=== PATIENT | male | born 1960 | race Caucasian/White ===

== ENCOUNTER 2017-07-06 00:56 | Emergency (ER) | payer OTHER ==
[~2017-07-06] VITALS: Ht 162.6 cm; Wt 89.8 kg
[~2017-07-06 00:56] MED LIST: ALLO300T PO; ATEN50TA PO; ATOR10TA PO; FENO145T2 PO; PIOG15TA42 PO; RAMI5CAP PO
[2017-07-06 00:57] VITALS: BP 172/92
--- NOTE | 2017-07-06 01:30 | PHYS DOC ---
Past Medical History Past Medical History: Diabetes-Type II, Other Additional Past Medical Histor: cerebral palsy Past Surgical History: Angioplasty, Coronary Bypass Surgery Additional Past Surgical Histo: ankle and leg surgery Alcohol Use: Occasionally Drug Use: None Adult General Chief Complaint Chief Complaint: HIP PAIN HPI HPI Patient is a 57 year old male who presents with chief complaint of sciatica- like pain on the right side, the pain is described as being similar to previous episodes. Patient has no other complaints. Patient denies abdominal pain chest pain, neck pain, shortness of breath. Review of Systems Review of Systems Constitutional: Denies fever or chills [] HENT: Denies neck pain Respiratory: Denies cough or shortness of breath [] Cardiovascular: No chest pain GI: Denies abdominal pain, nausea, vomiting, : Denies dysuria or hematuria [] Musculoskeletal: Denies joint pain. Pain at right lower back and a deviated the sciatic notch and the back of his right leg. No new swelling Integument: Denies rash or skin lesions [] Neurologic: Denies headache, focal weakness or sensory changes [] Endocrine: Denies polyuria or polydipsia [] Allergies Allergies Allergies Coded Allergies Type Severity Reaction Last Updated Verified No Known Drug Allergies 02/23/14 No Physical Exam Physical Exam Constitutional: Well developed, well nourished, no acute distress, non-toxic appearance. [] HENT: Normocephalic, atraumatic, oropharynx moist, no oral exudates, nose normal. [] Eyes: EOMI, conjunctiva normal, no discharge. [] Neck: Normal range of motion, no tenderness, supple, no stridor. [] Cardiovascular:Heart rate regular rhythm, no murmur, equal pulses, normal perfusion Lungs & Thorax: Bilateral breath sounds clear to auscultation, no tachypnea Abdomen: Bowel sounds normal, soft, no tenderness, no masses, no pulsatile masses. [] Skin: Warm, dry, no erythema, no rash. [] Back: Tenderness at the right lower back, at the sciatic notch on the right and the back of the right leg. Extremities: No tenderness, no cyanosis, no DVT, ROM intact, no edema. [] Neurologic: Alert and oriented X 3, normal motor function,, no focal deficits noted. [] Psychologic: Affect normal, judgement normal, mood normal. [] Current Patient Data Vital Signs Vital Signs Date Time Temp Pulse Resp B/P (MAP) Pulse Ox O2 Delivery O2 Flow Rate FiO2 07/06/17 00:57 98.2 79 20 172/92 (118) 97 Room Air 98.2 EKG EKG [] Radiology/Procedures Radiology/Procedures [] Course & Med Decision Making Course & Med Decision Making Pertinent Labs and Imaging studies reviewed. (See chart for details) [] Dragon Disclaimer Dragon Disclaimer This electronic medical record was generated, in whole or in part, using a voice recognition dictation system. Departure Departure Impression: Primary Impression: Sciatica of right side Disposition: HOME, SELF-CARE Condition: STABLE Referrals: PANDA MIN MD (PCP) Please follow-up with your doctor for recheck and reevaluation in 2-4 days Patient Instructions: Sciatica Scripts Methyl Salicylate/Menthol (ICY HOT CREAM) 35.4 Gm Cream..g. 35.4 GM TP BID Y for PAIN for 5 Days, #1 EACH Prov: Natalie VALENCIA MD 07/06/17 Acetaminophen With Codeine (ACETAMINOPHEN-COD #3 TABLET) 1 Each Tablet 1 TAB PO PRN Q6HRS Y for PAIN for 2 Days, #8 TAB Prov: Natalie VALENCIA MD 07/06/17 Natalie VALENCIA MD Jul 06, 2017 01:30
[2017-07-06] MEDS ORDERED: METH35.4 TP (01:35)
[2017-07-06] MEDS ORDERED: ACET1TAB33 PO (01:35)
[2017-07-06] MEDS: HYDROcodone/APAP 5/325MG 1 TAB TABLET PO ONE (01:43)
[2017-07-06] MEDS: KETOROLAC 30 MG/ML INJ. IM ONE (01:45)
== END 2017-07-06 02:11 | disposition home or self-care (01) ==
LOC: ER 00:56
DX: M54.41 Lumbago with sciatica, right side (principal); E11.9 Type 2 diabetes mellitus without complications; G80.9 Cerebral palsy, unspecified; Z95.5 Presence of coronary angioplasty implant and graft; Z95.1 Presence of aortocoronary bypass graft
CPT/HCPCS: 96372; 99284; J1885

== ENCOUNTER → 2019-01-16 | Outpatient (CLI) | payer OTHER ==
[~2019-01-16] MED LIST changes: +ACET1TAB33 PO; +BUPIVACAINE MPF 0.5% 10 ML VIAL for KCIC. IM ONE; -FENO145T2 PO; +FENO145T30 PO; +IOHEXOL 300 MG/ML 50 ML VIAL. INT ART ONE; +LIDOCAINE 1% Multi-Dose 20 ML VIAL. ID ONE; +METH35.4 TP; -RAMI5CAP PO; +RAMI5CAP50 PO; +methylPREDNISolone ACETATE 40 MG/ML VIAL. INT ART ONE
--- NOTE | 2019-01-16 15:43 | KCIC ---
Clinical indications: Left knee joint pain. Osteoarthritis. Previous surgery. Cerebral palsy. Procedure: The procedure and possible complications including bleeding and infection were explained. The patient provided both verbal and written consent. A timeout was performed confirming the name of the patient and date of and the procedure and side of the procedure. The anterior medial aspect of the left knee in the region of the medial patellofemoral joint recess was prepped and draped in the usual sterile fashion with ChloraPrep. A total of 3 cc of 1% lidocaine was utilized for local anesthesia. Using sterile technique and fluoroscopic guidance, a 22-gauge spinal needle was directed into the medial aspect of the patellofemoral joint compartment from an anterior medial approach. A solution containing 4 cc of Omnipaque 300 and 4 cc of 0.25% bupivacaine and 4 cc of 1% lidocaine and 2 cc (80 mg) of Depo-Medrol was injected intra-articularly. Single fluoroscopic spot image was performed. The needle was removed and hemostasis was adequate. A sterile bandage was applied to the puncture site. The patient tolerated the procedure well without complication. Follow-up will be with the patient's physician. Total fluoroscopic time: 16 seconds. 1 fluoroscopic spot image was performed. Impression: Fluoroscopic guided therapeutic left knee injection was performed. Electronically signed by: Jax Sy MD (01/16/2019 3:40 PM) [facility]
== END | disposition home or self-care (01) ==
LOC: KCIC 12:26
PROVIDERS: ATTEND Family Medicine
DX: M17.12 Unilateral primary osteoarthritis, left knee (principal); E11.9 Type 2 diabetes mellitus without complications; I25.2 Old myocardial infarction; Z95.5 Presence of coronary angioplasty implant and graft; Z79.84 Long term (current) use of oral hypoglycemic drugs; Z79.899 Other long term (current) drug therapy
CPT/HCPCS: 20610; 77002; J1030; Q9967

== ENCOUNTER 2019-10-29 14:33 | Inpatient (IN) | payer OTHER ==
[~2019-10-29] VITALS: Ht 162.6 cm; Wt 87.5 kg
[~2019-10-29 14:33] MED LIST changes: -BUPIVACAINE MPF 0.5% 10 ML VIAL for KCIC. IM ONE; +FENO145T3 PO; -FENO145T30 PO; -IOHEXOL 300 MG/ML 50 ML VIAL. INT ART ONE; -LIDOCAINE 1% Multi-Dose 20 ML VIAL. ID ONE; -methylPREDNISolone ACETATE 40 MG/ML VIAL. INT ART ONE
[2019-10-29 16:09] VITALS: BP 151/85
[2019-10-29] MEDS ORDERED: FENO145T3 PO (17:46)
[2019-10-29] MEDS ORDERED: ATOR20TA58 PO (17:46)
[2019-10-29] MEDS ORDERED: PANT40TA77 PO (17:46)
[2019-10-29] MEDS ORDERED: ALLO300T PO (17:46)
[2019-10-29] MEDS ORDERED: CEPH500C PO (17:46)
[2019-10-29] MEDS ORDERED: PIOG30TA41 PO (17:46)
[2019-10-29] MEDS ORDERED: ATEN50TA PO (17:46)
[2019-10-29] MEDS ORDERED: RAMI10CA53 PO (17:46)
[2019-10-29] MEDS ORDERED: DOXY100C2 PO (17:46)
[2019-10-29] MEDS ORDERED: FURO40TA4 PO (17:46)
--- NOTE | 2019-10-29 17:49 | NUR ---
pt admitted to room 576. oriented to room and call light. wounds pictured. pg to Dr. Lucero for orders.
[2019-10-29] MEDS ORDERED: VANCOMYCIN PER PHARMACY MC PRN (18:00)
[2019-10-29] MEDS ORDERED: INSU100V6 SQ (18:11)
[2019-10-29] MEDS ORDERED: IV DEXTROSE 5% 250 ML BAG. IV PRN (18:15)
[2019-10-29] MEDS ORDERED: DEXTROSE 50% 25 GM / 50ML DISP.SYRIN. IV PRN (18:15)
[2019-10-29] MEDS ORDERED: VANCOMYCIN 2 GM in IV NORMAL SALINE 500ML BAG 500 ML IV ONE (18:15)
[2019-10-29] MEDS ORDERED: PIPERACILLIN/TAZOBACTAM 3.375 GM in IV NORMAL SALINE 50ML 50 ML IV ONE (18:15)
[2019-10-29] MEDS: ALLOPURINOL 300 MG TABLET. PO SCH (18:30)
[2019-10-29 18:33] LABS: BASO # 0.1 x10^3/uL (0.0-0.2); BASO % 1 % (0-3); EOS # 0.1 x10^3/uL (0.0-0.7); EOS % 2 % (0-3); HEMATOCRIT 45.2 % (39.0-53.0); HEMOGLOBIN 14.9 g/dL (13.0-17.5); LYMPH # 1.5 x10^3/uL (1.0-4.8); LYMPH % 23 % (24-48); MEAN CORPUSCULAR HEMOGLOBIN 29 pg (25-35); MEAN CORPUSCULAR HGB CONC 33 g/dL (31-37); MEAN CORPUSCULAR VOLUME 87 fL (79-100); MONO # 0.4 x10^3/uL (0.0-1.1); MONO % 6 % (0-9); NEUT # 4.3 x10^3/uL (1.8-7.7); NEUT % 68 % (31-73); PLATELET COUNT 190 x10^3/uL (140-400); WHITE BLOOD COUNT 6.3 x10^3/uL (4.0-11.0)
[2019-10-29 18:40] LABS: INFLUENZA A PATIENT NEGATIVE (NEGATIVE); INFLUENZA B PATIENT NEGATIVE (NEGATIVE)
[2019-10-29 18:42] LABS: CALCIUM 9.6 mg/dL (8.5-10.1); CREATININE 0.8 mg/dL (0.7-1.3); GFR 98.3; POTASSIUM 3.9 mmol/L (3.5-5.1)
[2019-10-29 18:48] LABS: ALBUMIN 3.5 g/dL (3.4-5.0); TOTAL BILIRUBIN 0.4 mg/dL (0.2-1.0)
[2019-10-29] MEDS: ATENOLOL 50 MG TABLET. PO SCH (18:48)
[2019-10-29] MEDS: PANTOPRAZOLE 40 MG TABLET.DR. PO SCH (18:48)
[2019-10-29] MEDS: LISINOPRIL 20 MG TABLET PO SCH (18:49)
[2019-10-29] MEDS: FENOFIBRATE,MICRONIZED 134 MG CAPSULE PO SCH (18:50)
[2019-10-29] MEDS: PIOGLITAZONE 15 MG TABLET. PO SCH (18:50)
[2019-10-29] MEDS: INSULIN LISPRO 300 UNITS/3 ML VIAL. SQ SCH (18:52)
[2019-10-29 19:00] VITALS: BP 127/70
--- NOTE | 2019-10-29 19:13 | NUR ---
Pharmacy Vancomycin Dosing Note S:Consulted to monitor and dose vancomycin started 10/29/19. O:THOM LARSON is a 59 year old M with Cellulitis Height: 5 feet, 4 inches Weight: 93 kg Redfox Body Weight: 59.20 Adjusted Body Weight: 72.72 Dosing Weight: Actual Other Antibiotics: ZOSYN LABS: Last BUN: 23 Last Creatinine: 0.8 Creatinine Clearance: 100 mL/min Last WBC: 6.3 Last Procalcitonin: Tmax (past 24 hours): 98.1 Microbiology: - Vancomycin Dosing: Loading Dose: 2000 mg x1 Dosing Weight: Actual Target Trough: 10-20 A: Based on: weight and renal function P: 1. Begin Vancomycin 1250 mg IV q12h 2. Follow up Trough level on 10/31/19 at 0730 3. Pharmacy will continue to monitor, follow and adjust therapy as needed. Kaycee Pavon RPH, 10/29/19 [id number]
--- NOTE | 2019-10-29 19:21 | HP ---
ADMIT DATE: 10/29/2019 CHIEF COMPLAINT AND HISTORY OF PRESENT ILLNESS: This 59-year-old white male is well known to me from followup in the office. The patient was seen a week prior with bilateral lower extremity cellulitis and edema, much worse on the left than the right. He has a couple of open areas on his left lower leg in addition. He was started on some oral Lasix as well as p.o. doxycycline and Keflex but really not improved per se when seeing him in the office and the patient was admitted for IV antibiotics. His white count was normal that day in the office 6 days ago. BNP was, however, elevated at 3694 and hemoglobin A1c was elevated at 10.5. PAST MEDICAL HISTORY: Remarkable for long-standing diabetes. He has had a prior CABG with atherosclerotic heart disease, he is not always most compliant with his medications. He has hyperlipidemia for which he takes Lipitor, gout, ED, possibly at this point new diagnosis of some congestive heart failure, and cerebral palsy. MEDICATIONS: Meds were brought with the patient, listed on the computer, and have been addressed. ALLERGIES: He has no known drug allergies. SOCIAL HISTORY: Nonsmoker. Drinks beer on a fairly regular basis. He does not use drugs. FAMILY HISTORY: Positive for diabetes. REVIEW OF SYSTEMS: As mentioned above. In addition, he does admit to some symptoms that sound like orthopnea trying to lay down with shortness of breath or cough and this has not improved with the week of Lasix. He denies any fevers or chills; however, he has felt hot at times. He has a minimal decrease in appetite with this. PHYSICAL EXAMINATION: GENERAL: He is well-developed and well-nourished white male, in no acute distress. VITAL SIGNS: Vital signs are stable. He is afebrile in the office. HEAD, EYES, EARS, NOSE, AND THROAT: Remarkable for glasses. NECK: Supple without adenopathy or thyromegaly. CHEST: Clear to auscultation and percussion. HEART: Regular rate and rhythm without S3, S4, or murmur. ABDOMEN: Soft and nontender without hepatosplenomegaly or masses. EXTREMITIES: Reveal 2+ edema in left lower leg, trace to 1+ in right lower leg with cellulitis present, from just below the knee down to the feet. Again, with a couple of open areas laterally on his left lower leg. NEUROLOGIC: He is intact. IMPRESSION: 1. Failed outpatient treatment of cellulitis of the legs. 2. Multiple other problems listed above including a new onset of possible congestive heart failure. PLAN: The patient has been admitted. IV Zosyn and vancomycin will be started. ID will be consulted. Cultures will be obtained of the legs as we can. I am going to check an echocardiogram during the stay in addition with all the symptoms mentioned above. PANDA MIN MD DR: MYA/tarsha JOB#: [id number] / [id number]
[2019-10-29] MEDS: ATORVASTATIN CALCIUM 20 MG TABLET PO SCH (20:47)
[2019-10-29] MEDS: INSULIN GLARGINE SYRINGE. SQ SCH (20:50)
[2019-10-29] MEDS ORDERED: NON FORMULARY ITEM (Cephalexin 1 CAP) PO SCH (21:00)
[2019-10-29] MEDS ORDERED: NON FORMULARY ITEM (Doxycycline Hyclate 1 CAP) PO SCH (21:00)
[2019-10-29] MEDS: NYSTATIN TOPICAL POWDER 15GM BOTTLE. TP SCH (22:27)
[2019-10-29 23:00] VITALS: BP 111/59
[2019-10-29] MEDS: PIPERACILLIN/TAZOBACTAM 3.375 GM in IV NORMAL SALINE 50ML 50 ML IV SCH (23:17)
[2019-10-30 03:00] VITALS: BP 110/76
[2019-10-30] MEDS: PIPERACILLIN/TAZOBACTAM 3.375 GM in IV NORMAL SALINE 50ML 50 ML IV SCH ×4 (05:12→23:28)
[2019-10-30 05:19] LABS: CREATININE 0.8 mg/dL (0.7-1.3); GFR 98.3
[2019-10-30 07:00] VITALS: BP 108/70
[2019-10-30] MEDS ORDERED: VANCOMYCIN 1.25 GM in IV NORMAL SALINE 250ML 250 ML IV SCH (08:00)
[2019-10-30] MEDS: FENOFIBRATE,MICRONIZED 134 MG CAPSULE PO SCH (08:23)
[2019-10-30] MEDS: ATENOLOL 50 MG TABLET. PO SCH (08:23)
[2019-10-30] MEDS: PIOGLITAZONE 15 MG TABLET. PO SCH (08:23)
[2019-10-30] MEDS: NYSTATIN TOPICAL POWDER 15GM BOTTLE. TP SCH ×2 (08:23→20:47)
[2019-10-30] MEDS: ALLOPURINOL 300 MG TABLET. PO SCH (08:23)
[2019-10-30] MEDS: PANTOPRAZOLE 40 MG TABLET.DR. PO SCH ×2 (08:24→17:39)
[2019-10-30] MEDS: FUROSEMIDE 40 MG TABLET. PO SCH (08:24)
[2019-10-30] MEDS: LISINOPRIL 20 MG TABLET PO SCH (08:26)
[2019-10-30] MEDS: INSULIN LISPRO 300 UNITS/3 ML VIAL. SQ SCH ×3 (08:38→17:51)
--- NOTE | 2019-10-30 09:47 | PDOC ---
GENERAL General: vss and afebrile. legs same. chest clear, heart regular, abdomen benign. will get echo with elevated BNP and edema and sob with cough and check cxr also. hx cabg. continue broad spectrum iv antibiotics and await culture results. VITAL SIGNS/I&O Vital Signs/I&O: Vital Signs Date Time Temp Pulse Resp B/P (MAP) Pulse Ox O2 Delivery O2 Flow Rate FiO2 10/30/19 08:26 108/68 10/30/19 08:23 75 10/30/19 07:00 98.8 17 92 Room Air 98.8 I & O 10/29/19 10/29/19 10/30/19 15:00 23:00 07:00 Intake Total 550 ml 700 ml Balance 550 ml 700 ml ALLERGIES Allergies: Allergies Coded Allergies Type Severity Reaction Last Updated Verified No Known Drug Allergies 02/23/14 No MEDS Medications: Current Medications Medications (Trade) Dose Ordered Sig/Sandrine Route PRN Reason Start Time Stop Time Status Last Admin Dose Admin Piperacillin Sod/ Tazobactam Sod 3.375 gm/Sodium Chloride 50 ml @ 100 mls/hr Q6HRS IV 10/30/19 00:00 10/30/19 05:12 Vancomycin HCl (Vanco Per Pharmacy) 1 each PRN DAILY PRN MC SEE COMMENTS 10/29/19 18:00 10/29/19 19:10 Piperacillin Sod/ Tazobactam Sod 3.375 gm/Sodium Chloride 50 ml @ 100 mls/hr 1X ONCE IV 10/29/19 18:15 10/29/19 18:44 DC 10/29/19 18:51 Vancomycin HCl 2 gm/Sodium Chloride 500 ml @ 250 mls/hr 1X ONCE IV 10/29/19 18:15 10/29/19 20:14 DC 10/29/19 19:38 Insulin Glargine (Lantus Syringe) 40 unit QHS SQ 10/29/19 21:00 10/29/19 20:50 Allopurinol (Zyloprim) 300 mg DAILY PO 10/29/19 18:30 10/30/19 08:23 Atenolol (Tenormin) 50 mg DAILY PO 10/29/19 18:30 10/30/19 08:23 Atorvastatin Calcium (Lipitor) 20 mg QHS PO 10/29/19 21:00 10/29/19 20:47 Furosemide (Lasix) 40 mg DAILY PO 10/30/19 09:00 10/30/19 08:24 Insulin Human Lispro (HumaLOG) 20 units TIDWMEALS SQ 10/29/19 18:30 10/30/19 08:38 Pantoprazole Sodium (Protonix) 40 mg BIDAC PO 10/29/19 18:30 10/30/19 08:24 Fenofibrate (Lofibra) 134 mg DAILY PO 10/29/19 18:30 10/30/19 08:23 Pioglitazone HCl (Actos) 30 mg DAILY PO 10/29/19 18:30 10/30/19 08:23 Lisinopril (Prinivil) 20 mg DAILY PO 10/29/19 18:30 10/30/19 08:26 Vancomycin HCl 1.25 gm/Sodium Chloride 250 ml @ 167 mls/hr Q12H IV 10/30/19 08:00 10/30/19 08:22 Nystatin (Nystop) 1 mary alice BID TP 10/29/19 22:00 10/30/19 08:23 LAB Lab: Laboratory Tests Test 10/29/19 17:00 10/29/19 17:25 10/29/19 18:30 10/29/19 20:46 Influenza Type A Antigen Negative (NEGATIVE) Influenza Type B Antigen Negative (NEGATIVE) Glucose (Fingerstick) 358 mg/dL (70-99) H 236 mg/dL (70-99) H White Blood Count 6.3 x10^3/uL (4.0-11.0) Red Blood Count 5.20 x10^6/uL (4.30-5.70) Hemoglobin 14.9 g/dL (13.0-17.5) Hematocrit 45.2 % (39.0-53.0) Mean Corpuscular Volume 87 fL (79-100) Mean Corpuscular Hemoglobin 29 pg (25-35) Mean Corpuscular Hemoglobin Concent 33 g/dL (31-37) Red Cell Distribution Width 14.0 % (11.5-14.5) Platelet Count 190 x10^3/uL (140-400) Neutrophils (%) (Auto) 68 % (31-73) Lymphocytes (%) (Auto) 23 % (24-48) L Monocytes (%) (Auto) 6 % (0-9) Eosinophils (%) (Auto) 2 % (0-3) Basophils (%) (Auto) 1 % (0-3) Neutrophils # (Auto) 4.3 x10^3/uL (1.8-7.7) Lymphocytes # (Auto) 1.5 x10^3/uL (1.0-4.8) Monocytes # (Auto) 0.4 x10^3/uL (0.0-1.1) Eosinophils # (Auto) 0.1 x10^3/uL (0.0-0.7) Basophils # (Auto) 0.1 x10^3/uL (0.0-0.2) Sodium Level 139 mmol/L (136-145) Potassium Level 3.9 mmol/L (3.5-5.1) Chloride Level 101 mmol/L (98-107) Carbon Dioxide Level 28 mmol/L (21-32) Anion Gap 10 (6-14) Blood Urea Nitrogen 23 mg/dL (8-26) Creatinine 0.8 mg/dL (0.7-1.3) Estimated GFR (Cockcroft-Gault) 98.3 BUN/Creatinine Ratio 29 (6-20) H Glucose Level 336 mg/dL (70-99) H Calcium Level 9.6 mg/dL (8.5-10.1) Total Bilirubin 0.4 mg/dL (0.2-1.0) Aspartate Amino Transferase (AST) 24 U/L (15-37) Alanine Aminotransferase (ALT) 15 U/L (16-63) L Alkaline Phosphatase 105 U/L (46-116) Total Protein 7.0 g/dL (6.4-8.2) Albumin 3.5 g/dL (3.4-5.0) Albumin/Globulin Ratio 1.0 (1.0-1.7) Test 10/30/19 03:40 10/30/19 07:49 Creatinine 0.8 mg/dL (0.7-1.3) Estimated GFR (Cockcroft-Gault) 98.3 Glucose (Fingerstick) 169 mg/dL (70-99) H Laboratory Tests 10/29/19 18:30 Laboratory Tests 10/29/19 18:30 10/30/19 03:40 PANDA MIN MD Oct 30, 2019 09:47
--- NOTE | 2019-10-30 10:02 | PDOC ---
Infectious Disease Note Vital Sign Vital Signs Vital Signs Date Time Temp Pulse Resp B/P (MAP) Pulse Ox O2 Delivery O2 Flow Rate FiO2 10/30/19 08:26 108/68 10/30/19 08:23 75 10/30/19 07:00 98.8 17 92 Room Air 98.8 Labs Lab Laboratory Tests Test 10/29/19 17:00 10/29/19 17:25 10/29/19 18:30 10/29/19 20:46 Influenza Type A Antigen Negative (NEGATIVE) Influenza Type B Antigen Negative (NEGATIVE) Glucose (Fingerstick) 358 mg/dL (70-99) 236 mg/dL (70-99) White Blood Count 6.3 x10^3/uL (4.0-11.0) Red Blood Count 5.20 x10^6/uL (4.30-5.70) Hemoglobin 14.9 g/dL (13.0-17.5) Hematocrit 45.2 % (39.0-53.0) Mean Corpuscular Volume 87 fL (79-100) Mean Corpuscular Hemoglobin 29 pg (25-35) Mean Corpuscular Hemoglobin Concent 33 g/dL (31-37) Red Cell Distribution Width 14.0 % (11.5-14.5) Platelet Count 190 x10^3/uL (140-400) Neutrophils (%) (Auto) 68 % (31-73) Lymphocytes (%) (Auto) 23 % (24-48) Monocytes (%) (Auto) 6 % (0-9) Eosinophils (%) (Auto) 2 % (0-3) Basophils (%) (Auto) 1 % (0-3) Neutrophils # (Auto) 4.3 x10^3/uL (1.8-7.7) Lymphocytes # (Auto) 1.5 x10^3/uL (1.0-4.8) Monocytes # (Auto) 0.4 x10^3/uL (0.0-1.1) Eosinophils # (Auto) 0.1 x10^3/uL (0.0-0.7) Basophils # (Auto) 0.1 x10^3/uL (0.0-0.2) Sodium Level 139 mmol/L (136-145) Potassium Level 3.9 mmol/L (3.5-5.1) Chloride Level 101 mmol/L (98-107) Carbon Dioxide Level 28 mmol/L (21-32) Anion Gap 10 (6-14) Blood Urea Nitrogen 23 mg/dL (8-26) Creatinine 0.8 mg/dL (0.7-1.3) Estimated GFR (Cockcroft-Gault) 98.3 BUN/Creatinine Ratio 29 (6-20) Glucose Level 336 mg/dL (70-99) Calcium Level 9.6 mg/dL (8.5-10.1) Total Bilirubin 0.4 mg/dL (0.2-1.0) Aspartate Amino Transf (AST/SGOT) 24 U/L (15-37) Alanine Aminotransferase (ALT/SGPT) 15 U/L (16-63) Alkaline Phosphatase 105 U/L (46-116) Total Protein 7.0 g/dL (6.4-8.2) Albumin 3.5 g/dL (3.4-5.0) Albumin/Globulin Ratio 1.0 (1.0-1.7) Test 10/30/19 03:40 10/30/19 07:49 Creatinine 0.8 mg/dL (0.7-1.3) Estimated GFR (Cockcroft-Gault) 98.3 Glucose (Fingerstick) 169 mg/dL (70-99) Objective Assessment pt seen, consult dictated Plan Plan of Care / BRANDON GRIGSBY MD Oct 30, 2019 10:02
--- NOTE | 2019-10-30 10:36 | RAD ---
EXAM: CHEST ONE VIEW. HISTORY: Cough. COMPARISON: 05/22/2012. FINDINGS: A frontal view of the chest is obtained. There are changes of coronary artery bypass grafting. The inspiration is small. There are no confluent infiltrates. There is no pneumothorax or clear pleural effusion. The heart is moderately enlarged. There are atherosclerotic calcifications of the aorta. A bone island is suspected in the left proximal humerus. IMPRESSION: 1. Moderate cardiomegaly. Electronically signed by: lEma Maravilla MD (10/30/2019 10:33 AM) [facility]
--- NOTE | 2019-10-30 10:42 | CONS ---
DATE OF CONSULTATION: 10/30/2019 REQUESTING PHYSICIAN: Dr. Lucero. REASON FOR CONSULTATION: Cellulitis, failed outpatient therapy. HISTORY OF PRESENT ILLNESS: This is a 59-year-old gentleman with cerebral palsy who was seen by Dr. Lucero in the office with diagnosed having cellulitis of the leg. The patient was put on doxy and Keflex and he did not get better, hence he was admitted. The patient denies any fever, denies any nausea, vomiting, diarrhea. Denies any chest pain, shortness of breath. The patient has recently had swelling of the legs and there is ulceration on the left leg. Now the patient has been put on vancomycin and Zosyn. PAST MEDICAL HISTORY: Positive for diabetes mellitus, hyperlipidemia, gout, cerebral palsy. SOCIAL HISTORY: Negative for smoking. Does drink three times a week. Denies any drug use. ALLERGIES: No known drug allergies. CURRENT MEDICATIONS: Reviewed. REVIEW OF SYSTEMS: As per HPI, all other systems reviewed are negative. PHYSICAL EXAMINATION: GENERAL: Alert, oriented gentleman, not in distress. VITAL SIGNS: Stable, afebrile. HEENT: Both pupils are round and reacting. No conjunctival lesion, no lesion in the mouth. NECK: Supple, no JVP, no lymphadenopathy. LUNGS: Clear. HEART: S1, S2 regular. ABDOMEN: Soft, nontender, no organomegaly. EXTREMITIES: Bilateral lower extremity pitting edema present, bilateral lower extremity erythema present. Ulceration on the left leg. Significant swelling of the feet, dry flaky skin. NEUROLOGIC: The patient is able to move all the extremities. LABORATORY DATA: White count is 6.3, hemoglobin 14.9, platelets are normal. BUN and creatinine is normal. Influenza screen is negative. IMPRESSION: 1. Bilateral lower extremity cellulitis. 2. Left lower extremity ulcers. 3. Diabetes. 4. Hypertension. 5. Hyperlipidemia. 6. Cerebral palsy. RECOMMENDATIONS: Continue Zosyn. We will discontinue vancomycin. Leg elevation, supportive care and we will continue to follow. Thank you very much, Dr. Lucero, for giving me the opportunity to participate in this patient's care. BRANDON GRIGSBY MD DR: SHAWN/tarsha JOB#: [id number] / [id number]
[2019-10-30 11:00] VITALS: BP 94/58
--- NOTE | 2019-10-30 11:24 | CARD ---
MR#: [id number] Date of Study: 10/30/2019 Ordering Physician: PANDA MIN, Referring Physician: PANDA MIN, Tech: Joyce Santiago APPROVED REPORT EXAM: Two-dimensional and M-mode echocardiogram with Doppler and color Doppler. Other Information Quality : AverageHR: 69bpm Technically limited study due to body habitus. INDICATION Dyspnea Congestive Heart Failure Surgery/Intervention CABG: Date: 2011 RISK FACTORS Diabetes 2D DIMENSIONS RVDd3.9 (2.9-3.5cm)Left Atrium(2D)4.2 (1.6-4.0cm) IVSd1.1 (0.7-1.1cm)Aortic Root(2D)2.9 (2.0-3.7cm) LVDd5.1 (3.9-5.9cm)LVOT Diameter1.9 (1.8-2.4cm) PWd1.1 (0.7-1.1cm)LVDs3.5 (2.5-4.0cm) FS (%) 32.9 %SV74.8 ml LVEF(%)61.1 (>50%) Aortic Valve AoV Peak Mikey.124.4cm/sAoV VTI24.2cm AO Peak GR.6.2mmHgLVOT VTI 16.75cm AO Mean GR.4mmHg Mitral Valve MV E Wtnomvdd36.1cm/sMV E Peak Gr.3mmHg MV DECEL [id number] A Cygyejrb14.0cm/s MV E Mean Gr.1mmHgE/A Ratio1.9 TDI Lateral E' P. V5.92cm/sMedial E' P. V4.51cm/s E/Lateral E'14.2E/Medial E'18.6 Tricuspid Valve TR P. Ivztuipo128id/sRAP [id number] TR Peak Gr.29mmHg Pulmonary Vein S1 Tmljzymu81.1cm/sS2 Ekpeqzst19.23cm/s D2 Dzuwwjcc49.2cm/sPVa [id number] LEFT VENTRICLE The left ventricle is normal size. There is borderline to mild concentric left ventricular hypertroph y. The systolic function is moderately impaired. EF 35-40% There is global hypokinesis of the left ve ntricle. Wall motion consisitent with conduction abnormality. Transmitral Doppler flow pattern is Gra de II-pseudonormal filling dynamics. RIGHT VENTRICLE The right ventricle is mildly dilated. There is normal right ventricular wall thickness. Systolic fun ction is borderline reduced. ATRIA The left atrium is borderline dilated. The right atrium is borderline dilated. The interatrial septum is intact with no evidence for an atrial septal defect or patent foramen ovale as noted on 2-D or Do ppler imaging. AORTIC VALVE The aortic valve is normal in structure and function. Doppler and Color Flow revealed no significant aortic regurgitation. There is no significant aortic valvular stenosis. MITRAL VALVE The mitral valve is mildly thickened. There is no evidence of mitral valve prolapse. There is no mitr al valve stenosis. Doppler and Color-flow revealed trace mitral regurgitation. TRICUSPID VALVE The tricuspid valve is normal in structure and function. Doppler and Color Flow revealed trace tricus pid regurgitation with an estimated PAP of 37 mmHg. There is no tricuspid valve stenosis. PULMONIC VALVE The pulmonic valve is not well visualized. Doppler and Color Flow revealed no pulmonic valvular regur gitation. There is no pulmonic valvular stenosis. GREAT VESSELS The aortic root is normal in size. The ascending aorta is normal in size. The IVC was not visualized. PERICARDIAL EFFUSION There is no evidence of significant pericardial effusion. Critical Notification Critical Value: No <Conclusion> The systolic function is moderately impaired. EF 35-40% There is global hypokinesis of the left ventricle. Wall motion consisitent with conduction abnormalit y. Doppler and Color Flow revealed trace tricuspid regurgitation with an estimated PAP of 37 mmHg. Technically difficult study Signed by : Tramaine Smith, Electronically Approved : 10/30/2019 11:23:52
[2019-10-30 15:00] VITALS: BP 110/65
--- NOTE | 2019-10-30 15:35 | NUR ---
Wound Care: Patient seen per wound care consult. See wound assessment. Patient has stasis ulcer to the left medial lower leg and a stage III pressur ulcer to the coccyx. Wounds cleansed, assessed, measured, and pictured if needed. Recommendations for medi-honey to Xeroform gauze applied to wound bed and cover with foam dressing. Recommendations for A&D ointment to the coccyx wound BID and as needed. Dressings applied and patient tolerated well. No other wounds noted upon complete head to toe assessment. Dressing change instructions left in room. Bed lowered and call light in reach. Will follow patient regarding wound care.
[2019-10-30] MEDS: VITS A & D/LANOLIN TOPICAL OINTMENT 42GM TUBE. TP SCH ×2 (16:00→20:47)
[2019-10-30 19:00] VITALS: BP 91/53
[2019-10-30] MEDS: ATORVASTATIN CALCIUM 20 MG TABLET PO SCH (20:46)
[2019-10-30] MEDS: LACTOBACILLUS RHAMNOSUS GG 1 CAPSULE. PO SCH (20:46)
[2019-10-30] MEDS: INSULIN GLARGINE SYRINGE. SQ SCH (20:53)
[2019-10-30 23:00] VITALS: BP 116/69
[2019-10-31 03:00] VITALS: BP 110/72
[2019-10-31] MEDS: PIPERACILLIN/TAZOBACTAM 3.375 GM in IV NORMAL SALINE 50ML 50 ML IV SCH ×4 (06:32→23:31)
[2019-10-31 07:00] VITALS: BP 112/68
[2019-10-31] MEDS: INSULIN LISPRO 300 UNITS/3 ML VIAL. SQ SCH ×3 (08:58→17:00)
[2019-10-31] MEDS: VITS A & D/LANOLIN TOPICAL OINTMENT 42GM TUBE. TP SCH ×2 (09:00→20:30)
[2019-10-31] MEDS: PIOGLITAZONE 15 MG TABLET. PO SCH (09:51)
[2019-10-31] MEDS: FENOFIBRATE,MICRONIZED 134 MG CAPSULE PO SCH (09:51)
[2019-10-31] MEDS: LACTOBACILLUS RHAMNOSUS GG 1 CAPSULE. PO SCH ×2 (09:52→20:28)
[2019-10-31] MEDS: ALLOPURINOL 300 MG TABLET. PO SCH (09:52)
[2019-10-31] MEDS: FUROSEMIDE 40 MG TABLET. PO SCH (09:52)
[2019-10-31] MEDS: PANTOPRAZOLE 40 MG TABLET.DR. PO SCH ×2 (09:52→18:07)
[2019-10-31] MEDS: ATENOLOL 50 MG TABLET. PO SCH (09:52)
[2019-10-31] MEDS: LISINOPRIL 20 MG TABLET PO SCH (09:53)
[2019-10-31] MEDS: NYSTATIN TOPICAL POWDER 15GM BOTTLE. TP SCH ×2 (09:54→20:30)
--- NOTE | 2019-10-31 10:45 | PDOC ---
Infectious Disease Note Subjective Subjective feeling better ROS ROS no n/v/d/sob Vital Sign Vital Signs Vital Signs Date Time Temp Pulse Resp B/P (MAP) Pulse Ox O2 Delivery O2 Flow Rate FiO2 10/31/19 09:53 70 112/68 10/31/19 07:00 97.7 18 95 Room Air 97.7 Physical Exam PHYSICAL EXAM GENERAL: Alert, oriented gentleman, not in distress. VITAL SIGNS: Stable, afebrile. HEENT: Both pupils are round and reacting. No conjunctival lesion, no lesion in the mouth. NECK: Supple, no JVP, no lymphadenopathy. LUNGS: Clear. HEART: S1, S2 regular. ABDOMEN: Soft, nontender, no organomegaly. EXTREMITIES: Bilateral lower extremity pitting edema present, bilateral lower extremity erythema present. Ulceration on the left leg. Significant swelling of the feet, dry flaky skin. NEUROLOGIC: The patient is able to move all the extremities. Labs Lab Laboratory Tests Test 10/30/19 11:49 10/30/19 16:33 10/30/19 20:46 10/31/19 08:12 Glucose (Fingerstick) 118 mg/dL (70-99) 175 mg/dL (70-99) 246 mg/dL (70-99) 108 mg/dL (70-99) Objective Assessment IMPRESSION: 1. Bilateral lower extremity cellulitis. 2. Left lower extremity ulcers. 3. Diabetes. 4. Hypertension. 5. Hyperlipidemia. 6. Cerebral palsy. Plan Plan of Care cont antibiotics cont leg elevation BRANDON GRIGSBY MD Oct 31, 2019 10:45
[2019-10-31 11:00] VITALS: BP 124/62
--- NOTE | 2019-10-31 13:14 | NUR ---
SW following. Discussed with RN, pt is from home alone, has cerebral palsy. Wound care, IV Zosyn. PT/OT has been ordered. SW will continue to follow for discharge planning needs.
[2019-10-31 14:44] VITALS: BP 128/69
--- NOTE | 2019-10-31 15:54 | PDOC ---
GENERAL General: vss and afebrile. sugars better with regular use of insulin. still with cough a nd orthopnea. had elevated BNP in office last week. echo with depressed EF of 35-40% which is unexpected and will get cardiology eval for same. ID following along with iv antibiotics for bilateral lower leg cellulitis with gram stain showing gram + cocci. chest essentially clear, heart regular, abdomen benign, legs about same but less uncomfortable to patient. cxr without overt chf but some cardiomegaly. VITAL SIGNS/I&O Vital Signs/I&O: Vital Signs Date Time Temp Pulse Resp B/P (MAP) Pulse Ox O2 Delivery O2 Flow Rate FiO2 10/31/19 14:44 97.9 76 18 128/69 (88) 97 Room Air 97.9 I & O 10/30/19 10/30/19 10/31/19 15:00 23:00 07:00 Intake Total 0 ml Output Total 200 ml 300 ml Balance -200 ml -300 ml ALLERGIES Allergies: Allergies Coded Allergies Type Severity Reaction Last Updated Verified No Known Drug Allergies 02/23/14 No MEDS Medications: Current Medications Medications (Trade) Dose Ordered Sig/Sandrine Route PRN Reason Start Time Stop Time Status Last Admin Dose Admin Lactobacillus Rhamnosus (Culturelle) 1 cap BID PO 10/30/19 21:00 10/31/19 09:52 Vitamin A/Vitamin D (Vitamin A & D Ointment) 1 mary alice BID TP 10/30/19 16:00 10/31/19 09:00 LAB Lab: Laboratory Tests Test 10/30/19 16:33 10/30/19 20:46 10/31/19 08:12 10/31/19 11:09 Glucose (Fingerstick) 175 mg/dL (70-99) H 246 mg/dL (70-99) H 108 mg/dL (70-99) H 185 mg/dL (70-99) H PANDA MIN MD Oct 31, 2019 15:54
[2019-10-31 19:00] VITALS: BP 92/51
[2019-10-31] MEDS: ATORVASTATIN CALCIUM 20 MG TABLET PO SCH (20:28)
[2019-10-31] MEDS: INSULIN GLARGINE SYRINGE. SQ SCH (20:36)
[2019-10-31 23:00] VITALS: BP 108/70
[2019-11-01] VITALS (7 sets, daily range): BP systolic 91–114; BP diastolic 60–75
[2019-11-01] MEDS: PIPERACILLIN/TAZOBACTAM 3.375 GM in IV NORMAL SALINE 50ML 50 ML IV SCH ×3 (05:45→16:33)
[2019-11-01] MEDS: INSULIN LISPRO 300 UNITS/3 ML VIAL. SQ SCH ×3 (07:53→16:34)
[2019-11-01] MEDS: PANTOPRAZOLE 40 MG TABLET.DR. PO SCH ×2 (07:55→16:33)
[2019-11-01] MEDS: PIOGLITAZONE 15 MG TABLET. PO SCH (07:55)
--- NOTE | 2019-11-01 08:54 | NUR ---
MAGALYS following. Discussed with RN, OT recommending SNU. Pt declined PT due to having just gotten back to room. MAGALYS hoping for PT note this morning so can send to a SNU. Insurance will have to give auth. MAGALYS will continue to follow. Addendum: 11/01/19 at 1117 by KENZIE DOWELL PT/OT both recommending SNU. MAGALYS met with pt, pt does not want to go to SNU but may be agreeable to Home Health. Pt transferring to the 6th floor. MAGALYS passed info on to Edilma (SS for 6th floor).
[2019-11-01] MEDS: VITS A & D/LANOLIN TOPICAL OINTMENT 42GM TUBE. TP SCH ×2 (09:00→20:39)
[2019-11-01] MEDS: FENOFIBRATE,MICRONIZED 134 MG CAPSULE PO SCH (09:18)
[2019-11-01] MEDS: LACTOBACILLUS RHAMNOSUS GG 1 CAPSULE. PO SCH ×2 (09:19→20:38)
[2019-11-01] MEDS: NYSTATIN TOPICAL POWDER 15GM BOTTLE. TP SCH ×2 (09:19→20:39)
[2019-11-01] MEDS: FUROSEMIDE 40 MG TABLET. PO SCH (09:19)
[2019-11-01] MEDS: ATENOLOL 50 MG TABLET. PO SCH (09:19)
[2019-11-01] MEDS: LISINOPRIL 20 MG TABLET PO SCH (09:19)
[2019-11-01] MEDS: ALLOPURINOL 300 MG TABLET. PO SCH (09:20)
--- NOTE | 2019-11-01 09:27 | PDOC ---
Infectious Disease Note Subjective Subjective feeling better ROS ROS no n/v/d/sob Vital Sign Vital Signs Vital Signs Date Time Temp Pulse Resp B/P (MAP) Pulse Ox O2 Delivery O2 Flow Rate FiO2 11/01/19 09:19 68 114/75 11/01/19 07:55 Room Air 11/01/19 07:00 97.4 18 95 97.4 Physical Exam PHYSICAL EXAM GENERAL: Alert, oriented gentleman, not in distress. VITAL SIGNS: Stable, afebrile. HEENT: Both pupils are round and reacting. No conjunctival lesion, no lesion in the mouth. NECK: Supple, no JVP, no lymphadenopathy. LUNGS: Clear. HEART: S1, S2 regular. ABDOMEN: Soft, nontender, no organomegaly. EXTREMITIES: Bilateral lower extremity pitting edema present, bilateral lower extremity erythema present. Ulceration on the left leg. Significant swelling of the feet, dry flaky skin. redness and swelling improving NEUROLOGIC: The patient is able to move all the extremities. Labs Lab Laboratory Tests Test 10/31/19 11:09 10/31/19 17:17 10/31/19 18:04 10/31/19 20:16 Glucose (Fingerstick) 185 mg/dL (70-99) 63 mg/dL (70-99) 111 mg/dL (70-99) 250 mg/dL (70-99) Test 11/01/19 07:38 Glucose (Fingerstick) 108 mg/dL (70-99) Micro G + cocci Objective Assessment IMPRESSION: 1. Bilateral lower extremity cellulitis. 2. Left lower extremity ulcers. 3. Diabetes. 4. Hypertension. 5. Hyperlipidemia. 6. Cerebral palsy. Plan Plan of Care cont antibiotics cont leg elevation BRANDON GRIGSBY MD Nov 01, 2019 09:27
[2019-11-01] MEDS: LINEZOLID 600 MG TABLET PO SCH ×2 (10:15→20:38)
[2019-11-01 12:21] LABS: CHOLESTEROL/HDL RATIO 3.1
--- NOTE | 2019-11-01 12:33 | NUR ---
Pt transferred from 5th floor to room 669. Received report from STELLA Lieberman. All belongings left with patient at the time of transfer. Pt resting comfortably in bed, no c/o pain at this time.
--- NOTE | 2019-11-01 13:12 | PDOC2 ---
CANDACE LOPEZ STAVE AND BOLT EQUALIZER 11/01/19 1312: CARDIAC CONSULT DATE OF CONSULT Date of Consult DATE: 11/01/19 TIME: 1130 REASON FOR CONSULT Reason for Consult: Cardiomyopathy, dyspnea REFERRING PHYSICIAN Referring Physician: Jazmine SOURCE Source: Chart review, Patient HISTORY OF PRESENT ILLNESS HISTORY OF PRESENT ILLNESS This is a pleasant 59 yo male admitted for complains of SOA, cough and leg swelling. He has longstanding hx of cerebral palsy and has had multiple leg surgeries in the past. Reports that about 3 weeks ago he noticed that he has been becoming more SOA with exertion. This progressed with nonproductive cough. Eventually noting that his legs have became edematous and has been having some intermittent pain to his lower legs and developed wounds for the same amount of time and nonhealing particularly to his left calf region. Positive for orthopnea. No chest pain or palpitations. He does have CAD with CABG x3 in 2011. but has not seen or follow up with log haul operator in quite a while. The CABG was done here. He lives alone and there some friends that help him out at his home. Denies any frequent dizziness and no passing out, no recent injury. No fever or chills. He did received some antibiotics for his cough and SOA and still had 3 days left before he got admitted here. PAST MEDICAL HISTORY Cardiovascular: CAD, HTN, Hyperlipidemia Pulmonary: No pertinent hx CENTRAL NERVOUS SYSTEM: Periperal neuropathy GI: GERD Heme/Onc: No pertinent hx Musculoskeletal: Osteoarthritis, Other (cerebral palsy) Rheumatologic: Gout Infectious disease: No pertinent hx ENT: No pertinent hx Renal/: No pertinent hx Endocrine: Diabetes (2) Dermatology: Other (left leg wounds) PAST SURGICAL HISTORY Past Surgical History: CABG (2011), Other (mulitple bilateral leg surgeries) FAMILY HISTORY Family History: Diabetes SOCIAL HISTORY Smoke: No ALCOHOL: other (binges on the weekend) Drugs: None Lives: Alone CURRENT MEDICATIONS CURRENT MEDICATIONS Current Medications Medications (Trade) Dose Ordered Sig/Sandrine Route PRN Reason Start Time Stop Time Status Last Admin Dose Admin Linezolid (Zyvox) 600 mg BID PO 11/01/19 10:00 11/01/19 10:15 ALLERGIES ALLERGIES: Coded Allergies: No Known Drug Allergies (Unverified , 02/23/14) ROS Review of System 14 point ROS evaluated with pertinent positives noted per HPI PHYSICAL EXAM General: Alert, Oriented X3, Cooperative, No acute distress HEENT: Atraumatic, Mucous membr. moist/pink Lungs: Other (basilar crackles) Heart: Regular rate, Normal S1, Normal S2, No murmurs Abdomen: Soft Extremities: No cyanosis, Other (bilateral LE erythema with edema; patchy coolness to bilateral calves and feet. diminished pedal pulses) Skin: Other (left leg wounds) Neuro: Normal speech, Sensation intact Psych/Mental Status: Mental status NL, Mood NL MUSCULOSKELETAL: Osteoarthritic changes both hands VITALS/I&O VITALS/I&O: Vital Signs Date Time Temp Pulse Resp B/P (MAP) Pulse Ox O2 Delivery O2 Flow Rate FiO2 11/01/19 11:00 98.0 70 18 100/66 (77) 92 Room Air 98.0 I & O 10/31/19 10/31/19 11/01/19 15:00 23:00 07:00 Intake Total 650 ml 690 ml 300 ml Output Total 75 ml 150 ml Balance 650 ml 615 ml 150 ml LABS Lab: Laboratory Tests Test 10/31/19 17:17 10/31/19 18:04 10/31/19 20:16 11/01/19 07:38 Glucose (Fingerstick) 63 mg/dL (70-99) L 111 mg/dL (70-99) H 250 mg/dL (70-99) H 108 mg/dL (70-99) H Test 11/01/19 11:45 11/01/19 11:49 Triglycerides Level 96 mg/dL (0-150) Cholesterol Level 115 mg/dL (0-200) LDL Cholesterol, Calculated 59 mg/dL (0-100) VLDL Cholesterol, Calculated 19 mg/dL (0-40) Non-HDL Cholesterol Calculated 78 mg/dL (0-129) HDL Cholesterol 37 mg/dL (40-60) L Cholesterol/HDL Ratio 3.1 Thyroid Stimulating Hormone (TSH) 0.796 uIU/mL (0.358-3.74) Glucose (Fingerstick) 239 mg/dL (70-99) H ASSESSMENT/PLAN ASSESSMENT/PLAN 1. Bilateral LE cellulitis with poor healing left leg wounds 2. LE PAD with claudication symptoms and leg wounds 3. Cardiomyopathy: EF 35-40% NYHA 2. No recent for comparison 4. Acute on chronic systolic CHF: currently appears compensated 5. HTN: controlled 6. HLP: on goal 7. Uncontrolled DM2: insulin dependent 8. CAD: CABG in 2012. CP free. 9. Distal polyneuropathy 10. Cerebral palsy Recommendations 1. EKG. Transfer to 6S or CVC and monitor rhythm that would contribute to acute CHF 2. PO lasix. Recommend alternative to actos. 3. Continue lisinopril, lipitor and atenolol 4. BMP, Mg, TSH today 5. Will obtain 2012 CABG report and will check any past TTE/LHC after CABG 6. LE arterial duplex. Ischemic workup possibly as an outpt. 7. Antibiotics per ID. wound care consult. LOURDES PARKER MD 11/01/19 1618: CARDIAC CONSULT ASSESSMENT/PLAN ASSESSMENT/PLAN Patient seen and examined. Agree with MEDICAL CONCIERGE's assessment and plan. Agree with lower extremity arterial duplex scan to rule out significant PAD Continue diuresis for acute on chronic systolic heart failure CAD status clinically stable We will consider ischemic evaluation as an outpatient Thank you for your consultation CANDACE LOPEZ APRN Nov 01, 2019 13:12 LOURDES PARKER MD Nov 01, 2019 16:18
[2019-11-01 13:20] LABS: CALCIUM 9.4 mg/dL (8.5-10.1); CREATININE 1.1 mg/dL (0.7-1.3); GFR 68.1; MAGNESIUM 1.9 mg/dL (1.8-2.4); POTASSIUM 3.9 mmol/L (3.5-5.1)
--- NOTE | 2019-11-01 14:40 | EKG ---
[facility] [address] [place] [address] Test Date: 2019-11-01 Test Time: 14:35:17 Pat Name: THOM LARSON Department: Room: [facility] Gender: M Neonatal Nurse Practitioner: SANGEETHA : 1960 Requested By: CANDACE LOPEZ Order Number: [id number] Reading MD: Measurements Intervals [place] Rate: 66 P: 72 FL: 158 QRS: 32 QRSD: 94 T: 257 QT: 448 QTc: 472 Interpretive Statements SINUS RHYTHM ST & T ABNORMALITY, CONSIDER INFERIOR ISCHEMIA OR LEFT VENTRICULAR STRAIN T ABNORMALITY IN LATERAL LEADS ABNORMAL ECG RI6.02 Compared to ECG 04/24/2012 18:46:27 Possible ischemia now present Possible ischemia now present T-wave abnormality still present
--- NOTE | 2019-11-01 15:41 | PDOC ---
GENERAL General: vss and afebrile. awake and alert and legs feel better. chest clear, heart regular, abdomen benign, legs less red, strep species on wound culture to date. ongoing iv antibiotics. sugars overall better. cardiology help appreciated. VITAL SIGNS/I&O Vital Signs/I&O: Vital Signs Date Time Temp Pulse Resp B/P (MAP) Pulse Ox O2 Delivery O2 Flow Rate FiO2 11/01/19 15:04 97.1 71 18 110/72 (85) 94 Room Air 97.1 I & O 10/31/19 10/31/19 11/01/19 15:00 23:00 07:00 Intake Total 650 ml 690 ml 300 ml Output Total 75 ml 150 ml Balance 650 ml 615 ml 150 ml ALLERGIES Allergies: Allergies Coded Allergies Type Severity Reaction Last Updated Verified No Known Drug Allergies 02/23/14 No MEDS Medications: Current Medications Medications (Trade) Dose Ordered Sig/Sandrine Route PRN Reason Start Time Stop Time Status Last Admin Dose Admin Linezolid (Zyvox) 600 mg BID PO 11/01/19 10:00 11/01/19 10:15 LAB Lab: Laboratory Tests Test 10/31/19 17:17 10/31/19 18:04 10/31/19 20:16 11/01/19 07:38 Glucose (Fingerstick) 63 mg/dL (70-99) L 111 mg/dL (70-99) H 250 mg/dL (70-99) H 108 mg/dL (70-99) H Test 11/01/19 11:45 11/01/19 11:49 Sodium Level 144 mmol/L (136-145) Potassium Level 3.9 mmol/L (3.5-5.1) Chloride Level 106 mmol/L (98-107) Carbon Dioxide Level 27 mmol/L (21-32) Anion Gap 11 (6-14) Blood Urea Nitrogen 26 mg/dL (8-26) Creatinine 1.1 mg/dL (0.7-1.3) Estimated GFR (Cockcroft-Gault) 68.1 Glucose Level 223 mg/dL (70-99) H Calcium Level 9.4 mg/dL (8.5-10.1) Magnesium Level 1.9 mg/dL (1.8-2.4) Triglycerides Level 96 mg/dL (0-150) Cholesterol Level 115 mg/dL (0-200) LDL Cholesterol, Calculated 59 mg/dL (0-100) VLDL Cholesterol, Calculated 19 mg/dL (0-40) Non-HDL Cholesterol Calculated 78 mg/dL (0-129) HDL Cholesterol 37 mg/dL (40-60) L Cholesterol/HDL Ratio 3.1 Thyroid Stimulating Hormone (TSH) 0.796 uIU/mL (0.358-3.74) Glucose (Fingerstick) 239 mg/dL (70-99) H Laboratory Tests 11/01/19 11:45 PANDA MIN MD Nov 01, 2019 15:41
[2019-11-01] MEDS: ATORVASTATIN CALCIUM 20 MG TABLET PO SCH (20:38)
[2019-11-01] MEDS: INSULIN GLARGINE SYRINGE. SQ SCH (20:46)
[2019-11-02] VITALS (7 sets, daily range): BP systolic 101–117; BP diastolic 50–65
[2019-11-02] MEDS: PIPERACILLIN/TAZOBACTAM 3.375 GM in IV NORMAL SALINE 50ML 50 ML IV SCH ×2 (00:30→05:32)
--- NOTE | 2019-11-02 06:48 | RAD ---
MR#: [id number] Date of Study: 11/01/2019 Ordering Physician: CANDACE LOPEZ, Referring Physician: CANDACE LOPEZ, Tech: WANDER Dixon, RDMS, RTR APPROVED REPORT Patient Location: IN-PATIENT Indications PAD poor healing ulcer lle VELOCITY AND DOPPLER WAVEFORM ANALYSIS RIGHT cm/secWaveformSeverity LEFT cm/secWaveform Severity pCFA 87.5TriphasicpCFA 76.2Biphasic Prof Fem Art. 35.0Prof Fem Art. 24.3 Fem Art Prox. 78.7BiphasicFem Art Prox. 69.4Biphasic Fem Art Mid. 79.8BiphasicFem Art Mid. 66.6Biphasic Fem Art Dist. 62.0BiphasicFem Art Dist. 62.0Triphasic Pop Art(Fossa) 96.9BiphasicPop Art(AK) 45.3Biphasic MONORAIL OPERATOR Dist. 90.4BiphasicPTA Dist. 62.0Monophasic Per Art Dist.62.5BiphasicPer Art Dist.29.5Monophasic JESSICA Dist. 13.0MonophasicATA Dist. 86.0Biphasic DPA 21BiphasicDPA 67Monophasic Findings monophasic flow seen rt jessica, lt ferryboat captain, and left evelia On the right side there is mild diffuse atherosclerosis noted. The right common femoral, superficial femoral and popliteal arteries are patent without any focal obstruction. The profunda femoris likely has a 50% stenosis. Below the knee the peroneal and posterior tibial vessels appear to be patent with normal velocities. The anterior tibial arteries likely diffusely diseased with a greater than 75% st enosis extending to the dorsalis pedis level. On the left the common femoral, superficial femoral arteries are patent with biphasic waveforms. The popliteal artery appears to be patent again with biphasic waveforms. Below the knee there are monopha sic waveforms but with adequate velocities in the posterior tibial and peroneal vessels. The anterior tibial vessel also appears to be patent with normal velocities. This overall. Suggest moderate disea se in the posterior tibial and peroneal arteries. Critical Notification Critical Value: No <Conclusion> 1. No significant high-grade above knee disease in the bilateral common femoral, superficial femoral and popliteal arteries. 2. Probable moderate diffuse disease involving the profunda femoris bilaterally 3. Right anterior tibial artery likely greater than 75% stenosis 4. Probable greater than 50% stenosis involving the left peroneal artery. Signed by : Tramaine Smith, Electronically Approved : 11/02/2019 06:48:24
[2019-11-02] MEDS: INSULIN LISPRO 300 UNITS/3 ML VIAL. SQ SCH ×3 (08:00→18:13)
[2019-11-02] MEDS: LISINOPRIL 20 MG TABLET PO SCH (09:00)
[2019-11-02] MEDS: ATENOLOL 50 MG TABLET. PO SCH (09:00)
[2019-11-02] MEDS: VITS A & D/LANOLIN TOPICAL OINTMENT 42GM TUBE. TP SCH ×2 (09:00→21:15)
[2019-11-02] MEDS: LINEZOLID 600 MG TABLET PO SCH ×2 (09:20→21:15)
[2019-11-02] MEDS: LACTOBACILLUS RHAMNOSUS GG 1 CAPSULE. PO SCH ×2 (09:21→21:15)
[2019-11-02] MEDS: PIOGLITAZONE 15 MG TABLET. PO SCH (09:21)
[2019-11-02] MEDS: FENOFIBRATE,MICRONIZED 134 MG CAPSULE PO SCH (09:21)
[2019-11-02] MEDS: ALLOPURINOL 300 MG TABLET. PO SCH (09:22)
[2019-11-02] MEDS: NYSTATIN TOPICAL POWDER 15GM BOTTLE. TP SCH ×2 (09:22→21:14)
[2019-11-02] MEDS: PANTOPRAZOLE 40 MG TABLET.DR. PO SCH ×2 (09:22→18:09)
[2019-11-02] MEDS: FUROSEMIDE 40 MG TABLET. PO SCH (09:50)
[2019-11-02] MEDS: MULTIVITAMIN with MINERAL TABLET. PO SCH (09:57)
--- NOTE | 2019-11-02 10:58 | PDOC ---
CANDACE LOPEZ SEED SERVICE ADVISOR 11/02/19 1058: CARDIO Progress Notes Date and Time Date of Service 11/02/2019 Time of Evaluation 0900 Subjective Subjective: No Chest Pain, No shortness of breath, No Palpitations Vitals Vitals Vital Signs Date Time Temp Pulse Resp B/P (MAP) Pulse Ox O2 Delivery O2 Flow Rate FiO2 11/02/19 07:40 97.1 80 18 101/65 (77) 96 Room Air 97.1 Weight Weight [ ] Input and Output Intake and Output Intake and Output 11/02/19 07:00 Intake Total 640 ml Output Total 470 ml Balance 170 ml Intake Oral 640 ml Output Urine Total 470 ml # Voids 1 # Bowel Movements 1 Laboratory Labs Laboratory Tests Test 11/01/19 11:45 11/01/19 11:49 11/01/19 16:30 11/01/19 20:40 Sodium Level 144 mmol/L (136-145) Potassium Level 3.9 mmol/L (3.5-5.1) Chloride Level 106 mmol/L (98-107) Carbon Dioxide Level 27 mmol/L (21-32) Anion Gap 11 (6-14) Blood Urea Nitrogen 26 mg/dL (8-26) Creatinine 1.1 mg/dL (0.7-1.3) Estimated GFR (Cockcroft-Gault) 68.1 Glucose Level 223 mg/dL (70-99) Calcium Level 9.4 mg/dL (8.5-10.1) Magnesium Level 1.9 mg/dL (1.8-2.4) Triglycerides Level 96 mg/dL (0-150) Cholesterol Level 115 mg/dL (0-200) LDL Cholesterol, Calculated 59 mg/dL (0-100) VLDL Cholesterol, Calculated 19 mg/dL (0-40) Non-HDL Cholesterol Calculated 78 mg/dL (0-129) HDL Cholesterol 37 mg/dL (40-60) Cholesterol/HDL Ratio 3.1 Thyroid Stimulating Hormone (TSH) 0.796 uIU/mL (0.358-3.74) Glucose (Fingerstick) 239 mg/dL (70-99) 134 mg/dL (70-99) 226 mg/dL (70-99) Test 11/02/19 07:35 Glucose (Fingerstick) 91 mg/dL (70-99) Microbiology Micro Microbiology 10/29/19 Aerobic Culture - Preliminary, Resulted 10/29/19 Aerobic Culture Result 1 (JEMIMA) - Preliminary, Resulted 10/29/19 Gram Stain - Final, Resulted 10/29/19 Gram Stain Result 1 (JEMIMA) - Final, Resulted 10/29/19 Gram Stain Result 2 (JEMIMA) - Final, Resulted Physical Exam HEENT: Neck Supple W Full Motion Chest: Symmetric LUNGS: Other Heart: RRR (SR) Abdomen: Soft N/T Extremities: No Calf Tenderness, Other (2+ bilateral LE pitting edema) Neurology: alert, oriented, follow commands Assessment Assessment 1. Bilateral LE cellulitis with poor healing left leg wounds due to poorly controlled DM 2. LE PAD: no high grade stenosis above knee. Right MARCY revealed >75%, >50% stenosis involving the left peroneal artery. 3. Cardiomyopathy: EF 35-40% NYHA 2. compensated 4. Acute on chronic systolic CHF: compensated 5. HTN: controlled 6. HLP: on goal 7. Uncontrolled DM2: insulin dependent 8. CAD: CABG in 2011. CP free. ROJAS to LAD, SVG to diagonal and SVG to OM 9. Distal polyneuropathy 10. Cerebral palsy 11. Arrhythmia: noted with AFIB paroxysms Recommendations 1. Continue lasix therapy.Additional lasix PRN. BMP and Mg. 2. Recommend alternative to actos. 3. Continue lisinopril, lipitor, atenolol, ASA 4. If wounds fails to heal after sufficient wound treatment with good control of DM then will consider for outpt runoff. 5. Will arrange for outpt MPI and MCOT. Will note AFIB burden before consideration for any NOAC. LOURDES PARKER MD 11/02/19 1622: CARDIO Progress Notes Assessment Assessment Patient seen and examined. Agree with FINANCIAL CONSULTANT's assessment and plan. Lower extremity arterial duplex scan did not show any significant above the knee peripheral artery stenosis Reports most probably related to his diabetes - doubt he would benefit from AT/peroneal interventions CAD status clinically stable Chronic systolic heart failure clinically well compensated Continue current treatment for cellulitis per ID team We will plan for outpatient event monitor to assess arrhythmia burden CANDACE LOPEZ APRN Nov 02, 2019 10:58 LOURDES PARKER MD Nov 02, 2019 16:22
[2019-11-02 11:01] LABS: CALCIUM 9.3 mg/dL (8.5-10.1); CREATININE 1.1 mg/dL (0.7-1.3); GFR 68.1; MAGNESIUM 1.9 mg/dL (1.8-2.4); POTASSIUM 3.9 mmol/L (3.5-5.1)
--- NOTE | 2019-11-02 11:17 | PDOC ---
Infectious Disease Note Subjective Subjective feeling better ROS ROS no n/v/d/sob Vital Sign Vital Signs Vital Signs Date Time Temp Pulse Resp B/P (MAP) Pulse Ox O2 Delivery O2 Flow Rate FiO2 11/02/19 07:40 97.1 80 18 101/65 (77) 96 Room Air 97.1 Physical Exam PHYSICAL EXAM GENERAL: Alert, oriented gentleman, not in distress. VITAL SIGNS: Stable, afebrile. HEENT: Both pupils are round and reacting. No conjunctival lesion, no lesion in the mouth. NECK: Supple, no JVP, no lymphadenopathy. LUNGS: Clear. HEART: S1, S2 regular. ABDOMEN: Soft, nontender, no organomegaly. EXTREMITIES: Bilateral lower extremity pitting edema present, bilateral lower extremity erythema present. Ulceration on the left leg. Significant swelling of the feet, dry flaky skin. redness and swelling improving NEUROLOGIC: The patient is able to move all the extremities. Labs Lab Laboratory Tests Test 11/01/19 11:45 11/01/19 11:49 11/01/19 16:30 11/01/19 20:40 Sodium Level 144 mmol/L (136-145) Potassium Level 3.9 mmol/L (3.5-5.1) Chloride Level 106 mmol/L (98-107) Carbon Dioxide Level 27 mmol/L (21-32) Anion Gap 11 (6-14) Blood Urea Nitrogen 26 mg/dL (8-26) Creatinine 1.1 mg/dL (0.7-1.3) Estimated GFR (Cockcroft-Gault) 68.1 Glucose Level 223 mg/dL (70-99) Calcium Level 9.4 mg/dL (8.5-10.1) Magnesium Level 1.9 mg/dL (1.8-2.4) Triglycerides Level 96 mg/dL (0-150) Cholesterol Level 115 mg/dL (0-200) LDL Cholesterol, Calculated 59 mg/dL (0-100) VLDL Cholesterol, Calculated 19 mg/dL (0-40) Non-HDL Cholesterol Calculated 78 mg/dL (0-129) HDL Cholesterol 37 mg/dL (40-60) Cholesterol/HDL Ratio 3.1 Thyroid Stimulating Hormone (TSH) 0.796 uIU/mL (0.358-3.74) Glucose (Fingerstick) 239 mg/dL (70-99) 134 mg/dL (70-99) 226 mg/dL (70-99) Test 11/02/19 07:35 11/02/19 10:18 11/02/19 11:02 Glucose (Fingerstick) 91 mg/dL (70-99) 193 mg/dL (70-99) Sodium Level 145 mmol/L (136-145) Potassium Level 3.9 mmol/L (3.5-5.1) Chloride Level 107 mmol/L (98-107) Carbon Dioxide Level 27 mmol/L (21-32) Anion Gap 11 (6-14) Blood Urea Nitrogen 26 mg/dL (8-26) Creatinine 1.1 mg/dL (0.7-1.3) Estimated GFR (Cockcroft-Gault) 68.1 Glucose Level 172 mg/dL (70-99) Calcium Level 9.3 mg/dL (8.5-10.1) Magnesium Level 1.9 mg/dL (1.8-2.4) Micro G + cocci Objective Assessment IMPRESSION: 1. Bilateral lower extremity cellulitis. 2. Left lower extremity ulcers. 3. Diabetes. 4. Hypertension. 5. Hyperlipidemia. 6. Cerebral palsy. Plan Plan of Care cont antibiotics,, change to po keflex cont leg elevation BRANDON GRIGSBY MD Nov 02, 2019 11:17
--- NOTE | 2019-11-02 13:10 | NUR ---
Andrea Terry cardiac RESIDENTIAL SUBCONTRACTOR paged and informed that patient is in [place] rhythm. Potassium and Magnesium wnl. Pt is asymptomatic. Per Andrea will continue to monitor
[2019-11-02] MEDS: CEPHALEXIN 250 MG CAPSULE. PO SCH ×2 (14:58→21:15)
--- NOTE | 2019-11-02 15:05 | NUR ---
SS following up with discharge planning. SS met with pt to discuss discharge planning and nursing home unit and home healthcare. Pt declined both nursing home unit and home healthcare. Pt reported that he would discuss with Dr. Lucero if he felt it was needed. SS will continue to follow for discharge planning.
--- NOTE | 2019-11-02 17:33 | PDOC ---
GENERAL General: vss and afebrile. awake and alert. chest clear, heart regular, abdomen benign, less redness and pain of legs. arterial doppler with some disease but probably not significant. cardiology help appreciated. continue same. VITAL SIGNS/I&O Vital Signs/I&O: Vital Signs Date Time Temp Pulse Resp B/P (MAP) Pulse Ox O2 Delivery O2 Flow Rate FiO2 11/02/19 15:15 97.9 63 18 110/50 (70) 95 Room Air 97.9 I & O 11/01/19 11/01/19 11/02/19 15:00 23:00 07:00 Intake Total 280 ml 360 ml Output Total 120 ml 200 ml 150 ml Balance -120 ml 80 ml 210 ml ALLERGIES Allergies: Allergies Coded Allergies Type Severity Reaction Last Updated Verified No Known Drug Allergies 02/23/14 No MEDS Medications: Current Medications Medications (Trade) Dose Ordered Sig/Sandrine Route PRN Reason Start Time Stop Time Status Last Admin Dose Admin Multivitamins (Thera M Plus) 1 tab DAILY PO 11/02/19 10:00 11/02/19 09:57 Cephalexin HCl (Keflex) 500 mg TID PO 11/02/19 14:00 11/02/19 14:58 LAB Lab: Laboratory Tests Test 11/01/19 20:40 11/02/19 07:35 11/02/19 10:18 11/02/19 11:02 Glucose (Fingerstick) 226 mg/dL (70-99) H 91 mg/dL (70-99) 193 mg/dL (70-99) H Sodium Level 145 mmol/L (136-145) Potassium Level 3.9 mmol/L (3.5-5.1) Chloride Level 107 mmol/L (98-107) Carbon Dioxide Level 27 mmol/L (21-32) Anion Gap 11 (6-14) Blood Urea Nitrogen 26 mg/dL (8-26) Creatinine 1.1 mg/dL (0.7-1.3) Estimated GFR (Cockcroft-Gault) 68.1 Glucose Level 172 mg/dL (70-99) H Calcium Level 9.3 mg/dL (8.5-10.1) Magnesium Level 1.9 mg/dL (1.8-2.4) Test 11/02/19 17:05 Glucose (Fingerstick) 189 mg/dL (70-99) H Laboratory Tests 11/02/19 10:18 PANDA MIN MD Nov 02, 2019 17:33
[2019-11-02] MEDS: ATORVASTATIN CALCIUM 20 MG TABLET PO SCH (21:15)
[2019-11-02] MEDS: INSULIN GLARGINE SYRINGE. SQ SCH (21:15)
[2019-11-03 03:10] VITALS: BP 107/73
[2019-11-03 07:00] VITALS: BP 158/68
[2019-11-03] MEDS: INSULIN LISPRO 300 UNITS/3 ML VIAL. SQ SCH ×3 (08:00→17:32)
[2019-11-03] MEDS: VITS A & D/LANOLIN TOPICAL OINTMENT 42GM TUBE. TP SCH ×2 (09:00→21:00)
[2019-11-03] MEDS: ALLOPURINOL 300 MG TABLET. PO SCH (09:41)
[2019-11-03] MEDS: LISINOPRIL 20 MG TABLET PO SCH (09:41)
[2019-11-03] MEDS: MULTIVITAMIN with MINERAL TABLET. PO SCH (09:41)
[2019-11-03] MEDS: FENOFIBRATE,MICRONIZED 134 MG CAPSULE PO SCH (09:41)
[2019-11-03] MEDS: LINEZOLID 600 MG TABLET PO SCH ×2 (09:41→22:40)
[2019-11-03] MEDS: PIOGLITAZONE 15 MG TABLET. PO SCH (09:41)
[2019-11-03] MEDS: PANTOPRAZOLE 40 MG TABLET.DR. PO SCH ×2 (09:41→17:25)
[2019-11-03] MEDS: FUROSEMIDE 40 MG TABLET. PO SCH (09:42)
[2019-11-03] MEDS: LACTOBACILLUS RHAMNOSUS GG 1 CAPSULE. PO SCH ×2 (09:42→22:40)
[2019-11-03] MEDS: ATENOLOL 50 MG TABLET. PO SCH (09:42)
[2019-11-03] MEDS: ASCORBIC ACID 500 MG TABLET PO SCH (09:42)
[2019-11-03] MEDS: CEPHALEXIN 250 MG CAPSULE. PO SCH ×2 (09:42→14:12)
[2019-11-03] MEDS: NYSTATIN TOPICAL POWDER 15GM BOTTLE. TP SCH ×2 (09:44→22:46)
[2019-11-03 11:00] VITALS: BP 106/50
--- NOTE | 2019-11-03 11:41 | PDOC ---
Infectious Disease Note Subjective Subjective Says legs looking and feeling better, less red, swellin going down, no pain Some diarrhea last day or so. Denies cramps/N/V. Eating 100% meals No F/C/S ROS ROS per HPI Vital Sign Vital Signs Vital Signs Date Time Temp Pulse Resp B/P (MAP) Pulse Ox O2 Delivery O2 Flow Rate FiO2 11/03/19 11:00 97.9 65 20 106/50 (68) 94 Room Air 97.9 Physical Exam PHYSICAL EXAM GENERAL: Propped up in bed, alert in NAD HEENT: Oral cavity clear NECK: Supple LUNGS: Clear. HEART: S1, S2 regular. ABDOMEN: Obese, soft, nontender, + BS EXTREMITIES: Bilateral lower extremity pitting trace edema, mild bilateral lower extremity erythema present. Ulceration on the left leg + minimal drainage. Pedal edema SKIN: Warm to touch. No signs of rash NEUROLOGIC: ALert and answering questions appropriately Labs Lab Laboratory Tests Test 11/02/19 17:05 11/02/19 21:12 11/02/19 22:29 11/02/19 23:37 Glucose (Fingerstick) 189 mg/dL (70-99) 111 mg/dL (70-99) 70 mg/dL (70-99) 139 mg/dL (70-99) Test 11/03/19 08:02 Glucose (Fingerstick) 83 mg/dL (70-99) Micro Leg wound, 10/29. AEROBIC RES 1 Preliminary Streptococcus species Enterococcus faecalis Objective Assessment Bilateral lower extremity cellulitis - improving Left lower extremity ulcers + enterococcus faecalis Diabetes. Hypertension. Hyperlipidemia. Cerebral palsy. Plan Plan of Care Zyvox d/c Keflex f/u wound culture Leg elevation Local wound care KAMLA SHORT APRN Nov 03, 2019 11:41 BRANDON GRIGSBY MD Nov 03, 2019 14:39
[2019-11-03 15:00] VITALS: BP 92/59
[2019-11-03 19:00] VITALS: BP 98/61
--- NOTE | 2019-11-03 20:14 | PDOC ---
GENERAL General: vss and afebrile. awake and alert. chest clear and less sob and decreased cough, heart regular, abdomen benign, legs continue to improve. enterococcus on leg culture and on zyvox. plan dc in am. VITAL SIGNS/I&O Vital Signs/I&O: Vital Signs Date Time Temp Pulse Resp B/P (MAP) Pulse Ox O2 Delivery O2 Flow Rate FiO2 11/03/19 15:00 98.6 58 24 92/59 (70) 94 Room Air 98.6 I & O 11/02/19 11/02/19 11/03/19 15:00 23:00 07:00 Intake Total 320 ml 550 ml 320 ml Balance 320 ml 550 ml 320 ml ALLERGIES Allergies: Allergies Coded Allergies Type Severity Reaction Last Updated Verified No Known Drug Allergies 02/23/14 No MEDS Medications: Current Medications Medications (Trade) Dose Ordered Sig/Sandrine Route PRN Reason Start Time Stop Time Status Last Admin Dose Admin Ascorbic Acid (Vitamin C) 500 mg DAILY PO 11/03/19 09:00 11/03/19 09:42 LAB Lab: Laboratory Tests Test 11/02/19 21:12 11/02/19 22:29 11/02/19 23:37 11/03/19 08:02 Glucose (Fingerstick) 111 mg/dL (70-99) H 70 mg/dL (70-99) 139 mg/dL (70-99) H 83 mg/dL (70-99) Test 11/03/19 11:46 11/03/19 16:14 Glucose (Fingerstick) 138 mg/dL (70-99) H 149 mg/dL (70-99) H PANDA MIN MD Nov 03, 2019 20:14
[2019-11-03] MEDS: INSULIN GLARGINE SYRINGE. SQ SCH (21:00)
[2019-11-03] MEDS: ATORVASTATIN CALCIUM 20 MG TABLET PO SCH (22:40)
[2019-11-03 23:00] VITALS: BP 101/50
[2019-11-04 03:00] VITALS: BP 95/45
[2019-11-04 07:50] VITALS: BP 121/70
[2019-11-04] MEDS: INSULIN LISPRO 300 UNITS/3 ML VIAL. SQ SCH ×2 (08:00→12:00)
[2019-11-04] MEDS: ATENOLOL 50 MG TABLET. PO SCH (09:00)
[2019-11-04] MEDS: VITS A & D/LANOLIN TOPICAL OINTMENT 42GM TUBE. TP SCH (09:00)
[2019-11-04] MEDS: LISINOPRIL 20 MG TABLET PO SCH (09:00)
[2019-11-04] MEDS: LINEZOLID 600 MG TABLET PO SCH (10:03)
[2019-11-04] MEDS: MULTIVITAMIN with MINERAL TABLET. PO SCH (10:03)
[2019-11-04] MEDS: PIOGLITAZONE 15 MG TABLET. PO SCH (10:03)
[2019-11-04] MEDS: NYSTATIN TOPICAL POWDER 15GM BOTTLE. TP SCH (10:03)
[2019-11-04] MEDS: ASCORBIC ACID 500 MG TABLET PO SCH (10:03)
[2019-11-04] MEDS: FENOFIBRATE,MICRONIZED 134 MG CAPSULE PO SCH (10:04)
[2019-11-04] MEDS: LACTOBACILLUS RHAMNOSUS GG 1 CAPSULE. PO SCH (10:04)
[2019-11-04] MEDS: FUROSEMIDE 40 MG TABLET. PO SCH (10:04)
[2019-11-04] MEDS: PANTOPRAZOLE 40 MG TABLET.DR. PO SCH (10:04)
[2019-11-04] MEDS: ALLOPURINOL 300 MG TABLET. PO SCH (10:04)
[2019-11-04 10:35] VITALS: BP 112/61
[2019-11-04] MEDS ORDERED: INSU100V8 SQ (10:53)
--- NOTE | 2019-11-04 10:53 | PDOC ---
Infectious Disease Note Subjective Subjective Hoping to go home today Denies pain No F/C Vital Sign Vital Signs Vital Signs Date Time Temp Pulse Resp B/P (MAP) Pulse Ox O2 Delivery O2 Flow Rate FiO2 11/04/19 07:50 97.4 41 24 121/70 (87) 97 Room Air 97.4 Physical Exam PHYSICAL EXAM GENERAL: Propped up in bed, alert in NAD HEENT: Oral cavity clear NECK: Supple LUNGS: Clear. HEART: S1, S2 regular. ABDOMEN: Obese, soft, nontender, + BS EXTREMITIES: Bilateral lower extremity pitting trace edema, mild bilateral lower extremity erythema present. Ulceration on the left leg + minimal drainage. less pedal edema. SKIN: Warm to touch. No signs of rash NEUROLOGIC: Alert and answering questions appropriately Labs Lab Laboratory Tests Test 11/03/19 11:46 11/03/19 16:14 11/04/19 00:09 11/04/19 07:46 Glucose (Fingerstick) 138 mg/dL (70-99) 149 mg/dL (70-99) 68 mg/dL (70-99) 92 mg/dL (70-99) Micro Leg wound, 10/29. AEROBIC RES 1 Preliminary Streptococcus species Enterococcus faecalis ANTIMICROBIAL SUSCEPTIBILITY Final Comment S = Susceptible; I = Intermediate; R = Resistant P = Positive; N = Negative MICS are expressed in micrograms per mL Antibiotic RSLT#1 Penicillin S =2 Vancomycin S =1 Objective Assessment Bilateral lower extremity cellulitis - improving Left lower extremity ulcers + enterococcus faecalis PCN-S Diabetes. Hypertension. Hyperlipidemia. Cerebral palsy. Plan Plan of Care Zyvox for now Leg elevation Local wound care D/w Dr. Lucero Anticipating discharge home today Attending Co-Sign The patient was seen and interviewed as well as examined at the bedside. The chart was reviewed. The case was discussed. Agree with the plan of care. KAMLA SHORT APRN Nov 04, 2019 10:53 BRANDON GRIGSBY MD Nov 04, 2019 12:35
[2019-11-04] MEDS ORDERED: CEPHALEXIN 250 MG CAPSULE. PO SCH (14:00)
--- NOTE | 2019-11-04 14:50 | NUR ---
Discharge instructions given to patient regarding medications. Patient informed to follow up with Dr. Lucero and wound care. Contact information given. Education given over medications, signs and symptoms of hypoglycemia & hyperglycemia, and wound care. Patient verbalizes understanding.
== END 2019-11-04 14:50 | disposition home or self-care (01) | DRG 602 ==
LOC: 5 SOUTH 14:33 → 6 SOUTH 11-01 12:42
PROVIDERS: ADMIT Family Medicine; ATTEND Family Medicine
DX: L03.116 Cellulitis of left lower limb (principal); I50.23 Acute on chronic systolic (congestive) heart failure; L97.929 Non-pressure chronic ulcer of unspecified part of left lower leg with unspecified severity; I42.9 Cardiomyopathy, unspecified; L03.115 Cellulitis of right lower limb; I48.0 Paroxysmal atrial fibrillation; G80.9 Cerebral palsy, unspecified; E11.51 Type 2 diabetes mellitus with diabetic peripheral angiopathy without gangrene; E11.65 Type 2 diabetes mellitus with hyperglycemia; E78.5 Hyperlipidemia, unspecified; E11.42 Type 2 diabetes mellitus with diabetic polyneuropathy; I11.0 Hypertensive heart disease with heart failure; I25.10 Atherosclerotic heart disease of native coronary artery without angina pectoris; K21.9 Gastro-esophageal reflux disease without esophagitis; M10.9 Gout, unspecified; M19.90 Unspecified osteoarthritis, unspecified site; Z60.2 Problems related to living alone; B95.2 Enterococcus as the cause of diseases classified elsewhere; Z79.4 Long term (current) use of insulin; Z83.3 Family history of diabetes mellitus; Z95.1 Presence of aortocoronary bypass graft
CPT/HCPCS: 36415; 71045; 80048; 80053; 80061; 82565; 82962; 83735; 84443; 85025; 87070; 87186; 87804; 93005; 93306; 93923; J1815; J2543; J3370; J7040; J7050; 97530; 97535; G0378; J7030